=== PATIENT | male | born 1970 | race Caucasian/White ===

== ENCOUNTER 2016-07-13 10:35 | Emergency (ER) | payer MEDICAID, OTHER ==
[~2016-07-13] VITALS: Ht 170.2 cm; Wt 86.0 kg
[2016-07-13 10:46] VITALS: BP 114/75
[2016-07-13] MEDS ORDERED: METHOCARBAMOL 500MG TABLET PO ONE (12:00)
[2016-07-13] MEDS ORDERED: KETOROLAC 60MG/2ML VIAL IM ONE (12:00)
== END 2016-07-13 12:26 | disposition home or self-care (01) ==
LOC: ER 10:35
DX: S39.011A Strain of muscle, fascia and tendon of abdomen, initial encounter (principal); M25.561 Pain in right knee; X58.XXXA Exposure to other specified factors, initial encounter; Y93.89 Activity, other specified; Y92.018 Other place in single-family (private) house as the place of occurrence of the external cause
CPT/HCPCS: 99281

== ENCOUNTER 2018-05-19 17:10 | Emergency (ER) | payer SELFPAY ==
[~2018-05-19] VITALS: Ht 170.2 cm; Wt 79.0 kg
[2018-05-19 17:18] VITALS: BP 159/75
== END 2018-05-19 21:00 | disposition left against medical advice (07) ==
LOC: ER 17:10
DX: Z53.21 Procedure and treatment not carried out due to patient leaving prior to being seen by health care provider (principal)

== ENCOUNTER 2018-07-24 14:55 | Emergency (ER) | payer BC ==
[~2018-07-24] VITALS: Ht 177.8 cm; Wt 86.0 kg
[2018-07-24 19:25] VITALS: BP 110/81
== END 2018-07-24 19:25 | disposition home or self-care (01) ==
LOC: ER 14:55
DX: R05 Cough (principal)
CPT/HCPCS: 71045; 99283

== ENCOUNTER 2022-03-03 06:38 | Emergency (ER) | payer OTHER ==
[~2022-03-03] VITALS: Ht 172.7 cm; Wt 91.8 kg
[2022-03-03] MEDS ORDERED: ONDANSETRON HCL 4MG TABLET PO ONE (07:15)
[2022-03-03 07:32] VITALS: BP 146/81
[2022-03-03 08:17] LABS: CLARITY URINE CLOUDY (CLEAR); COLOR URINE DARK YELLOW (YELLOW); KETONES URINE NEGATIVE (NEGATIVE); LEUKOCYTE ESTERASE URINE NEGATIVE (NEGATIVE); NITRITE URINE NEGATIVE (NEGATIVE); OCCULT BLOOD URINE 3+ (NEGATIVE); PROTEIN URINE 1+ (NEGATIVE); SPECIFIC GRAVITY URINE 1.036 (1.005-1.030); UROBILINOGEN URINE 0.2 E.U./dL (0.2-1.0)
[2022-03-03] MEDS ORDERED: TAMS-11 PO (08:55)
[2022-03-03] MEDS ORDERED: T3 PO (08:55)
== END 2022-03-03 09:24 | disposition home or self-care (01) ==
LOC: ER 06:38
DX: N20.2 Calculus of kidney with calculus of ureter (principal)
CPT/HCPCS: 74176; 81003; 99284; Q0162

== ENCOUNTER 2024-10-20 15:56 | Emergency (ER) | payer MEDICAID, OTHER ==
[~2024-10-20] VITALS: Ht 170.2 cm; Wt 91.0 kg
[~2024-10-20 15:56] MED LIST: T3 PO; TAMS-54 PO
[2024-10-20 16:02] VITALS: TEMP 37; O2SAT 99
[2024-10-20 16:04] VITALS: O2SAT 100
[2024-10-20 16:43] LABS: BASOPHILS % 0.9 % (0.0-2.0); EOSINOPHILS % 0.7 % (0.0-5.0); HEMATOCRIT. 41.5 % (42.0-52.0); HEMOGLOBIN. 13.9 g/dL (14.0-18.0); LYMPHOCYTES % 27.4 % (20.0-50.0); MEAN PLATELET VOLUME 9.5 fl (7.4-10.4); MONOCYTES % 6.6 % (2.0-8.0); NEUTROPHILS % 64.4 % (40.0-76.0); PLATELET 221 x1000/uL (130-400); RED BLOOD CELL COUNT 4.49 mill/uL (4.7-6.1); RED CELL DISTRIBUTION WIDTH 13.6 % (11.6-14.6)
[2024-10-20 16:51] VITALS: BP 133/79; PULSE 77; RESP 16
[2024-10-20] MEDS: KETOROLAC 15MG/ML VIAL IM ONE (16:51)
[2024-10-20 16:56] LABS: CREATININE 1.0 mg/dL (0.6-1.3); UREA NITROGEN BLOOD 9 mg/dL (9-23)
[2024-10-20 16:58] LABS: ASPARTATE AMINOTRANSFERASE 23 IU/L (<34); BILIRUBIN DIRECT < 0.1 mg/dL (<=3.0); BILIRUBIN TOTAL 0.3 mg/dL (0.1-1.0)
[2024-10-20 16:59] LABS: PROTEIN TOTAL 7.0 g/dL (6.0-8.3)
[2024-10-20 17:25] LABS: CLARITY URINE CLEAR (CLEAR); COLOR URINE YELLOW (YELLOW); PH URINE 7.0 (4.5-8.0); PROTEIN URINE NEGATIVE (NEGATIVE); SPECIFIC GRAVITY URINE 1.016 (1.005-1.030)
[2024-10-20 17:26] LABS: GLUCOSE URINE NEGATIVE (NEGATIVE); KETONES URINE NEGATIVE (NEGATIVE); LEUKOCYTE ESTERASE URINE NEGATIVE (NEGATIVE); NITRITE URINE NEGATIVE (NEGATIVE); OCCULT BLOOD URINE NEGATIVE (NEGATIVE); UROBILINOGEN URINE 1.0 E.U./dL (0.2-1.0)
== END 2024-10-20 19:49 | disposition home or self-care (01) ==
LOC: ER 15:56
DX: N20.0 Calculus of kidney (principal)
CPT/HCPCS: 80076; 80048; 81003; 85025; 36415; 74176; 96372; 99285; J1885; Z7610 ×2